=== PATIENT | female | born 1955 | race Caucasian/White ===

== ENCOUNTER 2020-05-31 11:00 | Emergency (ER) | payer BC, MEDICARE ==
[~2020-05-31] VITALS: Ht 162.6 cm; Wt 113.8 kg
[2020-05-31 11:06] VITALS: BP 157/87
[2020-05-31 12:05] LABS: BASOPHILS % (AUTO) 1 % (0-1); EOSINOPHILS % (AUTO) 2 % (1-7); LYMPHOCYTES % (AUTO) 20 % (22-44); MEAN CORPUSCULAR HEMOGLOBIN 24.5 pg (27.0-34.8); MEAN CORPUSCULAR HGB CONC 31.4 g/dL (32.4-35.8); MEAN PLATELET VOLUME 9.3 fL (7.4-10.4); MONOCYTES % (AUTO) 8 % (2-9); NEUTROPHILS % (AUTO) 70 % (42-75); PLATELET COUNT 251 x10^3/uL (130-400)
[2020-05-31 12:10] LABS: MD NO
[2020-05-31 12:16] LABS: ANION GAP 5 mmol/L (5-15); CHLORIDE 111 mmol/L (98-107)
[2020-05-31 12:17] LABS: ALANINE AMINOTRANSFERASE 16 U/L (12-78); ALBUMIN 3.3 g/dL (3.4-5.0); ALKALINE PHOSPHATASE 69 U/L (45-117); BILIRUBIN,TOTAL 0.5 mg/dL (0.2-1.0); CALCIUM 8.6 mg/dL (8.5-10.1)
--- NOTE | 2020-05-31 12:24 | NUR ---
DOCTOR ADVISED ED EVAL FOR ANEMIA AND SOB. WAS SUPPOSED TO GET IRON INJECTION; OFFICE TOLD PT THEY COULDN'T GIVE IT TO PT. PT STATES "I'M FINE LONG I'M LAYING DOWN. I HAVE VERY LITTLE STAMINA". SX X 1 YEAR. EGD & COLONOSCOPY IN JULY: BOTH NEGATIVE. TAKING IRON SUPPLEMENTS. DENIES GI BLEED. LAST ORAL INTAKE: 0800 BAGEL. LAST BM: YESTERDAY, D[facility] FORMED.
--- NOTE | 2020-05-31 12:29 | NUR ---
DR KINSEY NOW AT BS
[2020-05-31] MEDS ORDERED: IRON (12:32)
[2020-05-31] MEDS ORDERED: LOSA25TA25 PO (12:41)
[2020-05-31] MEDS ORDERED: FLUO20CA23 PO (12:41)
[2020-05-31] MEDS ORDERED: LEVO25TA4 PO (12:41)
[2020-05-31] MEDS ORDERED: LIOT5TAB11 PO (12:41)
[2020-05-31] MEDS ORDERED: ZOLP5TAB6 PO (12:41)
[2020-05-31] MEDS ORDERED: [UNRECOGNIZED DRUG - OTHER] PO (12:41)
[2020-05-31] MEDS ORDERED: POTASSIUM PO (12:41)
[2020-05-31] MEDS ORDERED: FURO-93 PO (12:41)
--- NOTE | 2020-05-31 13:06 | NUR ---
PT CONTINUING TO REQUEST MORPHINE. INFORMED PT THAT MEDICATION MAY NOT BE GIVEN W/OUT A DOCTOR'S ORDER. INFORMED PT THAT ERP WILL BE IN SOON HE/SHE CAN AND THAT THE ED IS VERY BUSY RIGHT NOW. PT UNWILLING TO ACCEPT EXPLANATION.
[2020-05-31 13:43] LABS: TROPONIN I < 0.015 ng/mL (0.000-0.045)
== END 2020-05-31 14:49 | disposition home or self-care (01) ==
LOC: ED 14:38
DX: R06.00 Dyspnea, unspecified (principal); R53.1 Weakness; D63.8 Anemia in other chronic diseases classified elsewhere
CPT/HCPCS: 36415; 71045; 80053; 84484; 85025; 93005; 99285